=== PATIENT | female | born 1970 | race Caucasian/White ===

== ENCOUNTER 2017-03-23 15:30 | Emergency (ER) | payer MEDICAID ==
[~2017-03-23] VITALS: Ht 160 cm; Wt 55.0 kg
[2017-03-23 15:31] VITALS: BP 121/68
== END 2017-03-23 18:58 | disposition left against medical advice (07) ==
LOC: ER 15:54
DX: Z53.21 Procedure and treatment not carried out due to patient leaving prior to being seen by health care provider (principal)